=== PATIENT | male | born 1965 | race African-American/Black ===

== ENCOUNTER 2019-09-03 09:36 | Day surgery (SDC) | payer OTHER ==
[~2019-09-03 09:36] MED LIST: PROPOFOL INJ 200 MG/20 ML VIAL IV ONE
[2019-09-03] MEDS ORDERED: PROPOFOL INJ 200 MG/20 ML VIAL IV ONE (10:41)
[2019-09-03 11:31] VITALS: BP 133/88
--- NOTE | 2019-09-03 12:34 | Operative Report ---
Operative Report DATE OF SURGERY: 09/03/19 Operative Report: Risk, benefits and alternatives of the procedure including the risk of bleeding, perforation undergoing surgery have been explained to the patient in detail and informed consent has been obtained. Patient is placed in a left, lateral decubital position. Timeout was called. Propofol medication is administered. Rectal examination is done which did not reveal any masses, tears or fissures. An Olympus videoscope was introduced into the patient's rectum. Scope was then carefully advanced all the way to the cecum. The cecum was identified by the usual anatomical landmarks of the ileocecal valve as well as the appendiceal office. Photodocumentation is obtained. Scope was then sequentially pulled back via the various segments of the colon including the ascending colon, hepatic flexure, transverse colon, splenic flexure, descending colon finding to the rectosigmoid portions of the colon. Retroflexion maneuvers performed. PREOPERATIVE DIAGNOSIS: Blood in stool POSTOPERATIVE DIAGNOSIS: Internal hemorrhoids. Mild nonspecific inflammation right hand side of the colon status post biopsy OPERATION: Colonoscopy with biopsy SURGEON: XOCHITL CALDERA ANESTHESIA: LMAC TISSUE REMOVED OR ALTERED: As noted above. COMPLICATIONS: None. ESTIMATED BLOOD LOSS: None. INTRAOPERATIVE FINDINGS: As noted above. PROCEDURE: Patient tolerated the procedure well. No immediate postprocedure complications are noted. Patient is discharged in good condition. Discharge date 09/03/2019. Discharge diet: Regular. Discharge activity: Regular. 2 to 3-week follow-up to discuss findings. Patient is instructed to call the office or proceed to the emergency room should there be any further problems or questions. Wait on the pathology.
== END 2019-09-03 12:01 | disposition home or self-care (01) ==
LOC: END 09:36
PROVIDERS: ATTEND Internal Medicine Gastroenterology
DX: K52.9 Noninfective gastroenteritis and colitis, unspecified (principal); K64.8 Other hemorrhoids; K92.1 Melena; F17.210 Nicotine dependence, cigarettes, uncomplicated; Z79.899 Other long term (current) drug therapy; I10 Essential (primary) hypertension
CPT/HCPCS: 45380; 88305 ×2; 00811; J2704; 811

== ENCOUNTER 2019-10-29 18:55 | Emergency (ER) | payer OTHER ==
[2019-10-29] MEDS ORDERED: ONDANSETRON 4 MG TAB.RAPDIS PO ONE (20:06)
[2019-10-29] MEDS ORDERED: MECLIZINE HCL 25 MG TABLET PO ONE (20:06)
--- NOTE | 2019-10-29 20:08 | ER Document Report ---
ED Medical Screen (RME) - General Chief Complaint: Dizziness Stated Complaint: DIZZINESS Time Seen by Provider: 10/29/19 19:59 Mode of Arrival: Ambulatory Information source: Patient Notes: 54-year-old male patient presents emergency department chief complaint of dizziness. Patient reports dizziness started approximately 2 hours prior to arrival. He has associated nausea. Denies any vomiting, diarrhea, fever or syncopal episodes. Denies any chest pain or shortness of breath. Denies having any history of similar incidences. Patient alert, oriented, no acute distress noted. Patient reports he feels like the room is spinning around him. I have greeted and performed a rapid initial assessment of this patient. A comprehensive ED assessment and evaluation of the patient, analysis of test results and completion of the medical decision making process will be conducted by additional ED providers. I have specifically instructed the patient or family members with the patient to immediately return to any nursing staff should anything change in the patient's condition or with their chief complaint. TRAVEL OUTSIDE OF THE [place] IN LAST 30 DAYS: No - Related Data Allergies/Adverse Reactions: No Known Allergies Allergy (Verified 10/29/19 19:49) Home Medications: patient doesn't know Past Medical History - Past Medical History Cardiac Medical History: Reports: Hx Hypertension Denies: Hx Coronary Artery Disease, Hx Heart Attack Pulmonary Medical History: Denies: Hx Asthma, Hx Bronchitis, Hx COPD, Hx Pneumonia Neurological Medical History: Denies: Hx Cerebrovascular Accident, Hx Seizures Musculoskeltal Medical History: Denies Hx Arthritis - Immunizations Hx Diphtheria, Pertussis, Tetanus Vaccination: Yes Physical Exam - Vital signs Vitals: Temp Pulse Resp BP Pulse Ox 97.9 F 98 18 143/68 H 100 10/29/19 19:08 10/29/19 19:08 10/29/19 19:08 10/29/19 19:08 10/29/19 19:08 Course - Vital Signs Vital signs: Temp Pulse Resp BP Pulse Ox 97.9 F 98 18 143/68 H 100 10/29/19 19:08 10/29/19 19:08 10/29/19 19:08 10/29/19 19:08 10/29/19 19:08
[2019-10-29 21:03] LABS: APPEARANCE,URINE CLEAR; BILIRUBIN,URINE NEGATIVE (NEGATIVE); COLOR,URINE YELLOW; GLUCOSE, URINE NEGATIVE (NEGATIVE); KETONES,URINE NEGATIVE (NEGATIVE); LEUKOCYTE ESTERASE,URINE NEGATIVE (NEGATIVE); NITRITE,URINE NEGATIVE (NEGATIVE); PROTEIN,URINE 30 mg/dL (NEGATIVE); URINE SPECIFIC GRAVITY 1.018
[2019-10-29 21:04] LABS: ABSOLUTE BASOPHILS # (AUTO) 0.1 10^3/uL (0.0-0.2); ABSOLUTE EOSINOPHILS # (AUTO) 0.1 10^3/uL (0.0-0.6); ABSOLUTE LYMPHOCYTES (AUTO) 1.2 10^3/uL (0.5-4.7); ABSOLUTE MONOCYTES (AUTO) 0.6 10^3/uL (0.1-1.4); BASOPHILS % (AUTO) 1.1 % (0-2); EOSINOPHILS % (AUTO) 2.9 % (0-6); HEMATOCRIT 33.1 % (37.9-51.0); HEMOGLOBIN 10.5 g/dL (13.5-17.0); LYMPHOCYTES % (AUTO) 23.6 % (13-45); MEAN CORPUSCULAR HEMOGLOBIN 23.3 pg (27.0-33.4); MEAN CORPUSCULAR HGB CONC 31.7 g/dL (32.0-36.0); MEAN CORPUSCULAR VOLUME 73 fl (80-97); MONOCYTES % (AUTO) 12.2 % (3-13); PLATELET COUNT 285 10^3/uL (150-450); RED BLOOD COUNT 4.52 10^6/uL (4.35-5.55); RED CELL DISTRIBUTION WIDTH 16.1 % (11.5-14.0); SEGMENTED NEUTROPHILS % (AUTO) 60.2 % (42-78); TOTAL CELLS COUNTED % (AUTO) 100 %; WHITE BLOOD COUNT 4.9 10^3/uL (4.0-10.5)
[2019-10-29 21:19] LABS: ALBUMIN 4.1 g/dL (3.5-5.0); ALKALINE PHOSPHATASE 73 U/L (38-126); ANION GAP 8 (5-19); ASPARTATE AMINO TRANSFERASE 53 U/L (17-59); BILIRUBIN,DIRECT 0.2 mg/dL (0.0-0.4); BILIRUBIN,TOTAL 0.9 mg/dL (0.2-1.3); BLOOD UREA NITROGEN 9 mg/dL (7-20); CALCIUM 9.2 mg/dL (8.4-10.2); CARBON DIOXIDE 31 mmol/L (22-30); CHLORIDE 103 mmol/L (98-107); GLUCOSE 91 mg/dL (75-110); POTASSIUM 4.2 mmol/L (3.6-5.0); TOTAL PROTEIN 7.2 g/dL (6.3-8.2)
--- NOTE | 2019-10-29 22:33 | ER Document Report ---
ED General - General Chief Complaint: Dizziness Stated Complaint: DIZZINESS Time Seen by Provider: 10/29/19 19:59 Primary Care Provider: SUZY CRAIG MD [COMMUNITY BASED STAFF] - Follow up as needed KIRK BIANCHI MD [NO LOCAL MD] - Follow up as needed DANIA POLK MD [COMMUNITY BASED STAFF] - Follow up as needed TACHO WOLFE MD [HONORARY] - Follow up as needed Mode of Arrival: Ambulatory Information source: Patient TRAVEL OUTSIDE OF THE [place] IN LAST 30 DAYS: No - HPI Onset: Other - over the last week Onset/Duration: Gradual Quality of pain: No pain Severity: Moderate Pain Level: Denies Associated symptoms: Nausea, Other - Dizziness, Feeling Off Balance Exacerbated by: Standing, Movement, Walking Relieved by: Remaining still Similar symptoms previously: No Recently seen / treated by doctor: No Notes: 54 year old male with a history of HTN, Pre-Diabetes, and Hepatitis B here for a week of off and on dizziness with mild nausea and mild pre-scyncopal symptoms wh ich have acutely worsened today. The patient denies chest pains or shortness of breath but he did have some mild numbness and tingling in his left arm when his dizziness was the worst today. The patient has never felt like this before and he has no history of Vertigo. The patient denies actually passing out, head trauma, headaches, hearing loss, vision changes. - Related Data Allergies/Adverse Reactions: No Known Allergies Allergy (Verified 10/29/19 19:49) Home Medications: patient doesn't know Past Medical History - General Information source: Patient - Social History Smoking Status: Current Every Day Smoker Frequency of alcohol use: None Drug Abuse: None Lives with: Alone Family History: Reviewed & Not Pertinent Patient has suicidal ideation: No Patient has homicidal ideation: No - Past Medical History Cardiac Medical History: Reports: Hx Hypertension Denies: Hx Coronary Artery Disease, Hx Heart Attack Pulmonary Medical History: Denies: Hx Asthma, Hx Bronchitis, Hx COPD, Hx Pneumonia Neurological Medical History: Denies: Hx Cerebrovascular Accident, Hx Seizures Musculoskeletal Medical History: Denies Hx Arthritis Infectious Medical History: Reports: Hx Hepatitis - Immunizations Hx Diphtheria, Pertussis, Tetanus Vaccination: Yes Review of Systems - Review of Systems Constitutional: No symptoms reported EENT: No symptoms reported Cardiovascular: Dizziness, Lightheaded Respiratory: No symptoms reported, Hurts to breathe Gastrointestinal: No symptoms reported, Nausea Genitourinary: No symptoms reported Male Genitourinary: No symptoms reported Musculoskeletal: No symptoms reported Skin: No symptoms reported Hematologic/Lymphatic: No symptoms reported Neurological/Psychological: Numbness - of left arm, Tingling - of left arm, Other - Dizziness -: Yes All other systems reviewed and negative Physical Exam - Vital signs Vitals: Temp Pulse Resp BP Pulse Ox 97.9 F 98 18 143/68 H 100 10/29/19 19:08 10/29/19 19:08 10/29/19 19:08 10/29/19 19:08 10/29/19 19:08 - Notes Notes: GENERAL: Well-appearing, well-nourished and in no acute distress. HEAD: Atraumatic, normocephalic. EYES: Pupils equal round and reactive to light, extraocular movements intact, sclera anicteric, conjunctiva are normal. ENT: Nares patent, oropharynx clear without exudates. Moist mucous membranes. NECK: Normal range of motion, supple without lymphadenopathy or JVD. LUNGS: Breath sounds clear to auscultation bilaterally and equal. No wheezes rales or rhonchi. HEART: Regular rate and rhythm without murmurs, rubs or gallops. ABDOMEN: Soft, nontender, normoactive bowel sounds. No guarding, no rebound. No masses appreciated. EXTREMITIES: Normal range of motion, no pitting or edema. No clubbing or cyanosis. NEUROLOGICAL: Cranial nerves II through XII grossly intact. Normal speech, normal gait. Horizontal Nystagmus noted on exam bilaterally. Patient's dizziness and nausea is made worse with head movements. PSYCH: Normal mood, normal affect. SKIN: Warm, Dry, normal turgor, no rashes or lesions noted. Course - Re-evaluation Re-evalutation: 10/30/19 00:18 The patient has reproducible dizziness and nausea with head movements and he also has horizontal nystagmus. CT of head ordered since patient has never had vertigo before (CT shows no acute process). Patient felt somewhat better after Meclizine and Zofran. Patient felt even better after Valium. Patient's labs show no acute process (Patient has a hemoglobin of 10.5 but there are no old lab values for comparison). Will DC patient with a script for Meclizine and have patient follow up with his PCP and with a Neurologist. Patient's symptoms do not sound consistent with ACS and his EKG and Trop were unremarkable. - Vital Signs Vital signs: Temp Pulse Resp BP Pulse Ox 97.9 F 76 17 134/89 H 97 10/29/19 19:08 10/29/19 22:05 10/29/19 22:05 10/29/19 22:05 10/29/19 22:05 - Laboratory Result Diagrams: 10/29/19 20:35 10/29/19 20:35 Laboratory results interpreted by me: 10/29/19 10/29/19 10/29/19 20:35 20:35 20:35 Hgb 10.5 L Hct 33.1 L MCV 73 L MCH 23.3 L MCHC 31.7 L RDW 16.1 H Carbon Dioxide 31 H Urine Protein 30 H Urine Urobilinogen 4.0 H - Diagnostic Test Radiology reviewed: Image reviewed, Reports reviewed - EKG Interpretation by Me EKG shows normal: Sinus rhythm, Stamps, Intervals, QRS Complexes, ST-T Waves Rate: Normal Rhythm: NSR Discharge - Discharge Clinical Impression: Vertigo Condition: Stable Disposition: HOME, SELF-CARE Instructions: Dizziness ([facility]), Meclizine ([facility]), Vertigo ([facility]) Additional Instructions: Use Meclizine as prescribed for dizziness, feeling off balance, and nausea. Follow up with a primary care doctor and with a Neurologist. If you dont have primary care doctor or a Neurologist, several are listed in your paperwork for you to follow up with. Tell your doctors you had blood work, an EKG, and a head CT in the ER which were all unremarkable except you were found to be mildly Anemic. Your Hemoglobin was 10.5 so compare this with any recent labs draw you have had at your doctor's office to ensure this number is not different than your baseline levels. Prescriptions: Meclizine HCl 25 mg PO Q8H PRN #20 tablet PRN Reason: Referrals: DANIA POLK MD [COMMUNITY BASED STAFF] - Follow up as needed TACHO WOLFE MD [HONORARY] - Follow up as needed KIRK BIANCHI MD [NO LOCAL MD] - Follow up as needed SUZY CRAIG MD [[facility] BASED STAFF] - Follow up as needed
[2019-10-29] MEDS ORDERED: DIAZEPAM 5 MG TABLET PO ONE (22:34)
--- NOTE | 2019-10-29 23:35 | RADIOLOGY REPORT (SQ) ---
EXAM DESCRIPTION: [facility]: CT HEAD WITHOUT IV CONTRAST CLINICAL HISTORY: 54 years Male; New onset dizziness; TECHNIQUE: Noncontrast CT head. All CT scans at this facility use dose modulation, iterative reconstruction, and/or weight based dosing when appropriate to reduce radiation dose to as low as reasonably achievable. COMPARISON: None. FINDINGS: Ochoa matter, white matter, ventricles, and cisterns are within normal limits. No acute hemorrhage or mass effect. Visualized portions of paranasal sinuses and mastoids are clear. Visualized portions of the calvarium are within normal limits. IMPRESSION: 1. No acute intracranial findings.
[2019-10-30 00:23] VITALS: BP 139/84
--- NOTE | 2019-10-30 07:17 | EKG REPORT ---
SEVERITY:- NORMAL ECG - SINUS RHYTHM : Confirmed by: Ryan Cummings MD 30-Oct-2019 07:16:27
== END 2019-10-30 00:35 | disposition home or self-care (01) ==
LOC: ER 18:55
DX: R42 Dizziness and giddiness (principal); R11.0 Nausea; R20.2 Paresthesia of skin; I10 Essential (primary) hypertension; E11.9 Type 2 diabetes mellitus without complications
CPT/HCPCS: 93005; 99284; 36415; 82962; 85025; 80053; 81001; 84484; 70450; 93010; S0119